=== PATIENT | male | born 1985 | race American Indian/Alaskan Native ===

== ENCOUNTER 2017-09-28 18:12 | Emergency (ER) | payer OTHER ==
[2017-09-28 18:23] VITALS: BP 146/100; PULSE 80; RESP 16; TEMP 98.2; O2SAT 98
--- NOTE | 2017-09-28 20:45 | C.PDOC ---
History Of Present Illness 32 year old male presents to the ER with a complaint of left ankle pain. Patient is unsure of the mechanism of injury but notes he stepped off a roof approximately 1 week ago and landed on uneven ground, he had no pain at the time but states he progressively began having pain and now has pain with ambulation. Denies weakness or numbness. Time Seen by Provider: 09/28/17 19:19 Chief Complaint (Nursing): Lower Extremity Problem/Injury History Per: Patient History/Exam Limitations: no limitations Onset/Duration Of Symptoms: Days Current Symptoms Are (Timing): Still Present Recent travel outside of the [place]: No - Ankle/Foot Description Of Injury: Other (Landed on uneven ground) Past Medical History Reviewed: Historical Data, Nursing Documentation, Vital Signs Vital Signs: Last Vital Signs Temp 98.2 F 09/28/17 18:21 Pulse 80 09/28/17 18:21 Resp 16 09/28/17 18:21 BP 146/100 H 09/28/17 18:21 Pulse Ox 98 09/28/17 20:46 - Medical History PMH: HTN Family History: States: Unknown Family Hx - Social History Hx Alcohol Use: No Hx Substance Use: No - Immunization History Hx Tetanus Toxoid Vaccination: No Hx Influenza Vaccination: No Hx Pneumococcal Vaccination: No Review Of Systems Musculoskeletal: Positive for: Foot Pain Neurological: Negative for: Weakness, Numbness Physical Exam - Physical Exam Appears: Non-toxic Skin: Normal Color, Warm, Dry Head: Atraumatic, Normacephalic Eye(s): bilateral: Normal Inspection Extremity: Capillary Refill (<2 seconds), No Deformity, Other (Tenderness to left medial and lateral ankle. ROM of left ankle with pain. No calcaneal tenderness.) Pulses: Left Dorsalis Pedis: Normal, Right Dorsalis Pedis: Normal Neurological/Psych: Oriented x3, Normal Speech, Normal Motor, Normal Sensation Gait: Steady ED Course And Treatment O2 Sat by Pulse Oximetry: 98 - Other Rad Left ankle x-ray X-Ray: Interpreted by Me, Viewed By Me Interpretation: Calcifications to the fibula area, no fractures or dislocations. Progress Note: Left ankle x-ray ordered, results were negative. X-ray reviewed with Dr. Chicas who agrees with reading. Motrin administered for pain with relief. Patient is resting comfortably in the ER in no acute distess, vitals are stable, will discharge home with Rx and instructions to follow up with PMD for ortho referral. Disposition Counseled Patient/Family Regarding: Diagnosis, Need For Followup, Rx Given - Disposition Referrals: [facility] [Outside] Disposition: HOME/ ROUTINE Disposition Time: 20:41 Condition: STABLE Additional Instructions: Please follow up with PMD for ortho referral Take motrin as directed for pain Apply ICE to area TAMERA wrap for support Return to ER if worse Prescriptions: Ibuprofen [Motrin] 600 mg PO Q6H #24 tab Instructions: Ankle Sprain (DC) Forms: [facility] (Bulgarian), Work Excuse - Clinical Impression Clinical Impression: Left ankle sprain - 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 - Scribe Statement The provider has reviewed the documentation as recorded by the Scribe Antonio Lipscomb All medical record entries made by the Scribedwige were at my direction and personally dictated by me. I have reviewed the chart and agree that the record accurately reflects my personal performance of the history, physical exam, medical decision making, and the department course for this patient. I have also personally directed, reviewed, and agree with the discharge instructions and disposition.
--- NOTE | 2017-09-29 10:24 | RAD ---
PROCEDURE: Left ankle dated 09/28/2017 HISTORY: pain, swelling, twisting injury COMPARISON: None FINDINGS: BONES: No evidence of acute displaced fracture nor dislocation. There is mild soft tissue swelling overlying the medial and to a lesser degree the lateral malleolus JOINTS: Minor productive change- osteophyte arising from the inferior tip medial malleolus. Ankle mortise maintained. Talar dome intact SOFT TISSUES: Normal. OTHER FINDINGS: None. IMPRESSION: No evidence of acute displaced fracture nor dislocation. Minor soft tissue swelling. Small osteophyte projecting off the inferior tip of the medial malleolus
== END 2017-09-28 20:51 | disposition home or self-care (01) ==
LOC: C.ER 18:12
DX: S93.402A Sprain of unspecified ligament of left ankle, initial encounter (principal); X50.0XXA Overexertion from strenuous movement or load, initial encounter; Y92.89 Other specified places as the place of occurrence of the external cause